=== PATIENT | male | born 1960 | race Caucasian/White ===

== ENCOUNTER 2017-04-07 21:58 | Emergency (ER) | payer OTHER ==
[~2017-04-07] VITALS: Ht 185.4 cm; Wt 105.6 kg
[2017-04-07] MEDS ORDERED: IBUPROFEN 200 MG TABLET ONE (22:59)
[2017-04-07] MEDS ORDERED: IBUPROFEN 200 MG TABLET PO ONE (23:00)
[2017-04-07 23:15] LABS: ASPARTATE AMINO TRANSFERASE 22 U/L (15-37); BLOOD UREA NITROGEN 21 mg/dL (7-18)
[2017-04-07 23:19] LABS: IS PT STATUS REG ER OR PRE ER? YES
[2017-04-07 23:57] VITALS: BP 126/81
== END 2017-04-08 00:21 | disposition home or self-care (01) ==
LOC: ED 23:59
DX: R07.89 Other chest pain (principal); E78.5 Hyperlipidemia, unspecified
CPT/HCPCS: 36415; 71020; 80053; 84484; 85025; 85379; 85610; 85730; 93005